=== PATIENT | male | born 1960 | race Caucasian/White ===

== ENCOUNTER 2017-08-22 22:11 | Emergency (ER) | payer OTHER ==
[~2017-08-22] VITALS: Ht 182.9 cm; Wt 131.0 kg
[2017-08-23] MEDS ORDERED: KEFLEX500 MG PO (00:13)
[2017-08-23 00:46] VITALS: BP 140/79
== END 2017-08-23 00:46 | disposition home or self-care (01) ==
LOC: EME 22:11 → RME 22:11
DX: S61.411A Laceration without foreign body of right hand, initial encounter (principal); W31.9XXA Contact with unspecified machinery, initial encounter; Z23 Encounter for immunization
CPT/HCPCS: 99281; 99284